=== PATIENT | male | born 1990 ===

== ENCOUNTER 2017-04-02 11:57 | Observation (INO) | payer MEDICAID ==
--- NOTE | 2017-04-02 12:56 | ED PDOC ---
HPI: General Adult Time Seen by Provider: 04/02/17 12:40 Chief Complaint (Nursing): Weakness/Neurological Deficit Chief Complaint (Provider): Generalized weakness History Per: Patient History/Exam Limitations: no limitations Onset/Duration Of Symptoms: Other (6 weeks) Have you had recent travel within the past 21 days to any of the following countries: [place], [place], [place] or [place]?: No Current Symptoms Are (Timing): Still Present Additional Complaint(s): 26 year old male with past medical history of HIV (not on meds, dx'ed 2009) presents to ED with complaints of generalized weakness x 6 weeks. Patient states was evaluated by Dr. Dena Padilla last month and was told to come to ED today due to anemia. Patient states fatigue and generalized weakness is present. Denies palpitations, chest pain, dyspnea, headache, fever, chills, abdominal pain, recent travel, change in vision, or back pain. Denies nausea/ vomiting. Denies any active bleeding. PMD: Dr. Dena Padilla Past Medical History Reviewed: Historical Data, Nursing Documentation, Vital Signs Vital Signs: Last Vital Signs Temp 98.6 F 04/02/17 16:49 Pulse 119 H 04/02/17 16:49 Resp 18 04/02/17 16:49 BP 130/69 04/02/17 16:49 Pulse Ox 100 04/02/17 16:49 - Medical History PMH: HIV (not on meds) - Surgical History Surgical History: Appendectomy - Family History Family History: States: No Known Family Hx - Home Medications Home Medications: Ambulatory Orders Medication Instructions Recorded Doxycycline Hyclate [Doryx] 100 mg PO BID 04/02/17 metroNIDAZOLE [Flagyl] 500 mg PO TID 04/02/17 - Allergies Allergies/Adverse Reactions: Allergies Allergy/AdvReac Type Severity Reaction Status Date / Time No Known Allergies Allergy Verified 03/14/17 10:43 Review of Systems ROS Statement: Except As Marked, All Systems Reviewed And Found Negative Neurological: Positive for: Weakness. Negative for: Dizziness Physical Exam - Reviewed Nursing Documentation Reviewed: Yes Vital Signs Reviewed: Yes - Physical Exam Appears: Positive for: No Acute Distress Head Exam: Positive for: ATRAUMATIC, NORMAL INSPECTION, NORMOCEPHALIC Skin: Positive for: Normal Color, Warm, Dry Eye Exam: Positive for: Normal appearance, EOMI Neck: Positive for: Normal, Painless ROM, Supple Cardiovascular/Chest: Positive for: Regular Rate, Rhythm Respiratory: Positive for: Normal Breath Sounds Gastrointestinal/Abdominal: Positive for: Normal Exam, Bowel Sounds (+), Soft Back: Positive for: Normal Inspection. Negative for: L CVA Tenderness, R CVA Tenderness Extremity: Positive for: Normal ROM. Negative for: Tenderness, Pedal Edema Neurologic/Psych: Positive for: Alert, copy writer II-XII, Oriented - Laboratory Results Result Diagrams: 04/02/17 16:11 04/02/17 12:55 - ECG ECG: Positive for: Interpreted By Me, Viewed By Me ECG Rhythm: Positive for: Sinus Tachycardia O2 Sat by Pulse Oximetry: 98 Pulse Ox Interpretation: Normal - Progress ED Course And Treament: Time: 1240 Initial impression: 26 year old male with medical history of smoker, HIV (not on meds) with generalized weakness x 6 wks, referred by PMD due to anemia. Plan: * CBC * CMP * TYPE AND SCREEN * EKG * REEVAL Time: 1400 Patient improved minimally but continues with symptoms. EKG - sinus tachycardia. Labs reviewed, Hgb 8.1. K+: 3.4 Will replace with K-Dur 40mEq and give NS 500 ml x 1 and re-evaluate. Time: 1540 Continued symptoms, will obtain repeat CBC Time: 1640 Repeat CBC shows Hgb 7.1 and continued tachycardia. Will transfuse 2U pRBC at this time. Informed consent obtained. Spoke with [id number], Dr. May, accepted patient for obs-tele. Disposition - Clinical Impression Clinical Impression: Anemia, HIV (human immunodeficiency virus infection) - Patient ED Disposition Is Patient to be Admitted: Yes Counseled Patient/Family Regarding: Studies Performed, Diagnosis - Disposition Disposition Time: 17:00 Condition: FAIR - Pt Status Changed To: Hospital Disposition Of: Observation - POA Present On Arrival: None
[2017-04-02 13:40] LABS: ALB/GLOB RATIO 0.8 (1.0-2.1); ALKALINE PHOSPHATASE 155 U/L (38-126); ALT/SGPT 29 U/L (21-72); AST/SGOT 49 U/L (17-59); BASO % 0.3 % (0.0-2.0); BILIRUBIN,TOTAL 0.3 mg/dl (0.2-1.3); BLOOD UREA NITROGEN 12 mg/dl (9-20); CALCIUM 8.8 mg/dL (8.4-10.2); CARBON DIOXIDE 22 mmol/L (22-30); CHLORIDE 109 mmol/L (98-107); EOS % 0.4 % (0.0-4.0); GFR AFRICAN-AMERICAN > 60; GLUCOSE,RANDOM 85 mg/dL (75-110); HEMATOCRIT 23.7 % (35.0-51.0); LYMPH # 0.3 K/uL (1.0-4.3); LYMPH % 3.4 % (20.0-40.0); MEAN CELL VOLUME 93.2 fl (80.0-94.0); MEAN CORPUSCULAR HEMOGLOBIN 31.9 pg (27.0-31.0); MEAN CORPUSCULAR HGB CONC 34.3 g/dL (33.0-37.0); MONO # 0.6 K/uL (0.0-0.8); MONO % 7.2 % (0.0-10.0); NEUT # 6.9 K/uL (1.8-7.0); NEUT % 88.7 % (50.0-75.0); NRBC % 0.1 % (0.0-0.0); PLATELET COUNT 249 K/uL (130-400); POTASSIUM 3.4 MMOL/L (3.6-5.0); RED CELL DISTRIBUTION WIDTH 14.8 % (11.5-14.5); SODIUM 140 mmol/l (132-148); TOTAL PROTEIN 7.1 G/DL (6.3-8.2); WHITE BLOOD COUNT 7.8 K/uL (4.8-10.8)
[2017-04-02 14:13] LABS: NEUTROPHIL 91 % (42-75); TOTAL CELLS COUNTED 100
[2017-04-02] MEDS ORDERED: Sodium Chloride 0.9% 500 ML IV ONE (14:13)
[2017-04-02] MEDS ORDERED: Potassium Chloride 20 mEq ER Tab PO ONE ×2 (14:14→14:44)
[2017-04-02 14:15] LABS: LARGE PLATELETS PRESENT
[2017-04-02 16:50] LABS: MEAN CELL VOLUME 92.6 fl (80.0-94.0); MEAN CORPUSCULAR HEMOGLOBIN 31.4 pg (27.0-31.0); MEAN CORPUSCULAR HGB CONC 33.9 g/dL (33.0-37.0); RED CELL DISTRIBUTION WIDTH 14.5 % (11.5-14.5); WHITE BLOOD COUNT 6.1 K/uL (4.8-10.8)
[2017-04-02] MEDS ORDERED: DiphenhydrAMINE 50 mg/ml Inj IVP ONE (21:20)
[2017-04-03] MEDS ORDERED: methylPREDNISolone 60 MG in Sodium Chloride 0.9% 50 ML IVPB STA (00:42)
[2017-04-03] MEDS ORDERED: DiphenhydrAMINE 50 mg/ml Inj IVP STA (00:50)
[2017-04-03 06:48] LABS: HEMATOCRIT 28.5 % (35.0-51.0); MEAN CELL VOLUME 91.6 fl (80.0-94.0); MEAN CORPUSCULAR HEMOGLOBIN 30.3 pg (27.0-31.0); MEAN CORPUSCULAR HGB CONC 33.1 g/dL (33.0-37.0); RED CELL DISTRIBUTION WIDTH 15.8 % (11.5-14.5); WHITE BLOOD COUNT 9.4 K/uL (4.8-10.8)
[2017-04-03 07:06] LABS: ALB/GLOB RATIO 0.8 (1.0-2.1); ALKALINE PHOSPHATASE 134 U/L (38-126); ALT/SGPT 30 U/L (21-72); AST/SGOT 52 U/L (17-59); BILIRUBIN,TOTAL 0.3 mg/dl (0.2-1.3); BLOOD UREA NITROGEN 12 mg/dl (9-20); CALCIUM 9.1 mg/dL (8.4-10.2); CARBON DIOXIDE 22 mmol/L (22-30); CHLORIDE 109 mmol/L (98-107); CHOLESTEROL 111 mg/dL (0-199); GFR AFRICAN-AMERICAN > 60; GLUCOSE,RANDOM 104 mg/dL (75-110); POTASSIUM 4.6 MMOL/L (3.6-5.0); SODIUM 142 mmol/l (132-148)
[2017-04-03 07:13] LABS: T4 6.46 ug/dl (5.5-11.0)
--- NOTE | 2017-04-03 10:56 | CARD ---
APPROVED REPORT EKG Measurement Heart [id number] <Conclusion> Sinus tachycardia Rightward axis Borderline ECG
--- NOTE | 2017-04-03 12:22 | CP.PCM.CON ---
History of Present Illness - History of Present Illness History of Present Illness: 6 year old male with past medical history of HIV (not on meds, dx'ed 2009) presents to ED with complaints of generalized weakness x 6 weeks. Patient states was evaluated by Dr. Dena Padilla last month and was told to come to ED today due to anemia. Patient states fatigue and generalized weakness is present. Denies palpitations, chest pain, dyspnea, headache, fever, chills, abdominal pain, recent travel, change in vision, or back pain. Denies nausea/ vomiting. Denies any active bleeding. + chronic diarrhea HIV + for at least 7 years on no meds PMD: Dr. Dena Padilla - Medical History PMH: HIV (not on meds) - Surgical History Surgical History: Appendectomy Review of Systems - Constitutional Constitutional: As Per HPI, Anorexia, Malaise, Weight Loss - EENT Eyes: absent: As Per HPI, Blind Spots, Blurred Vision, Change in Vision, Decreased Night Vision, Diplopia, Discharge, Dry Eye, Exophthalmos, Floaters, Irritation, Itchy Eyes, Loss of Peripheral Vision, Pain, Photophobia, Requires Corrective Lenses, Sees Flashes, Spots in Vision, Tunnel Vision, Other Visual Disturbances, Loss of Vision, Other Ears: absent: As Per HPI, Decreased Hearing, Ear Discharge, Ear Pain, Tinnitus, Abnormal Hearing, Disequilibrium, Dizziness, Other Nose/Mouth/Throat: absent: As Per HPI, Epistaxis, Nasal Congestion, Nasal Discharge, Nasal Obstruction, Nasal Trauma, Nose Pain, Post Nasal Drip, Sinus Pain, Sinus Pressure, Bleeding Gums, Change in Voice, Dental Pain, Dry Mouth, Dysphagia, Halitosis, Hoarsness, Lip Swelling, Mouth Lesions, Mouth Pain, Odynophagia, Sore Throat, Throat Swelling, Tongue Swelling, Facial Pain, Neck Pain, Neck Mass, Other - Cardiovascular Cardiovascular: absent: As Per HPI, Acrocyanosis, Chest Pain, Chest Pain at Rest , Chest Pain with Activity, Claudication, Diaphoresis, Dyspnea, Dyspnea on Exertion, Edema, Irregular Heart Rhythm, Pain Radiating to Arm/Neck/Jaw, Leg Edema, Leg Ulcers, Lightheadedness, Orthopnea, Palpitations, Paroxysmal Nocturnal Dyspnea, Pedal Edema, Radiating Pain, Rapid Heart Rate, Slow Heart Rate, Syncope, Other - Respiratory Respiratory: absent: As Per HPI, Cough, Dyspnea, Hemoptysis, Dyspnea on Exertion , Wheezing, Snoring, Stridor, Pain on Inspiration, Chest Congestion, Excessive Mucous Production, Change in Mucous Color, Pain with Coughing, Other - Gastrointestinal Gastrointestinal: As Per HPI - Genitourinary Genitourinary: absent: As Per HPI, Change in Urinary Stream, Difficulty Urinating, Dysuria, Flank Pain, Hematuria, Pyuria, Nocturia, Urinary Incontinence, Urinary Frequency, Urinary Hesitance, Urinary Urgency, Voiding Freq/Small Amts, Freq UTI, Hx Renal/Bladder Calculi, Hx /Renal Surgery, Bladder Distension, Other - Musculoskeletal Musculoskeletal: absent: As Per HPI, Abnormal Gait, Arthralgias, Atrophy, Back Pain, Deformity, Joint Swelling, Limited Range of Motion, Loss of Height, Muscle Cramps, Muscle Weakness, Myalgias, Neck Pain, Numbness, Radiating Pain into Limb, Stiffness, Tingling, Other - Integumentary Integumentary: absent: As Per HPI, Acne, Alopecia, Bleeding Lesions, Change in Hair, Change in Nails, Change in Pigmentation, Changing Lesions, Dry Skin, Erythema, Furuncle, Hirsutism, Lesions, New Lesions, Non-Healing Lesions, Photosensitivity, Pruritus, Rash, Skin Pain, Skin Ulcer, Sores, Striae, Swelling , Unusual Bruising, Wounds, Jaundice, Other - Neurological Neurological: Weakness - Psychiatric Psychiatric: absent: As Per HPI, Abnormal Sleep Pattern, Anhedonia, Anxiety, Auditory Hallucinations, Behavioral Changes, Change in Appetite, Change in Libido, Confusion, Depression, Difficulty Concentrating, Hallucinations, Homicidal Ideation, Hopelessness, Irritability, Memory Loss, Mood Swings, Panic Attacks, Paranoia, Suicidal Ideation, Visual Hallucinations, Tactile Hallucinations, Other - Endocrine Endocrine: absent: As Per HPI, Change in Body Appearance, Change in Libido, Cold Intolorance, Deepening of Voice, Excessive Sweating, Fatigue, Flushing, Heat Intolorance, Increase in Ring/Shoe/Hat Size, Palpitations, Polydipsia, Polyphagia, Polyuria, Other - Hematologic/Lymphatic Hematologic: absent: As Per HPI, Easy Bleeding, Easy Bruising, Lymphadenopathy, Other Past Patient History - Past Medical History & Family History Past Medical History?: Yes - Past Social History Smoking Status: Light Smoker < 10 Cigarettes Daily - CARDIAC Hx Cardiac Disorders: No - PULMONARY Hx Respiratory Disorders: No - NEUROLOGICAL Hx Neurological Disorder: No - HEENT Hx HEENT Problems: No - RENAL Hx Chronic Kidney Disease: No - ENDOCRINE/METABOLIC Hx Endocrine Disorders: No - HEMATOLOGICAL/ONCOLOGICAL Hx Blood Disorders: Yes Hx Human Immunodeficiency Virus (HIV): Yes (not on meds) - INTEGUMENTARY Hx Dermatological Problems: No - MUSCULOSKELETAL/RHEUMATOLOGICAL Hx Musculoskeletal Disorders: No Hx Falls: No - GASTROINTESTINAL Hx Gastrointestinal Disorders: No - GENITOURINARY/GYNECOLOGICAL Hx Genitourinary Disorders: No - PSYCHIATRIC Hx Psychophysiologic Disorder: Yes Hx Substance Use: Yes (marijuana) - SURGICAL HISTORY Hx Surgeries: Yes Hx Appendectomy: Yes - ANESTHESIA Hx Anesthesia: Yes Hx Anesthesia Reactions: No Hx Malignant Hyperthermia: No Meds Allergies/Adverse Reactions: Allergies Allergy/AdvReac Type Severity Reaction Status Date / Time No Known Allergies Allergy Verified 03/14/17 10:43 - Medications Medications: Current Medications Acetaminophen (Tylenol 325mg Tab) 650 mg PO Q4 PRN PRN Reason: Temperature Last Admin: 04/02/17 23:11 Dose: 650 mg Physical Exam - Constitutional Appears: Non-toxic, Cachectic, Chronically Ill - Head Exam Head Exam: ATRAUMATIC, NORMAL INSPECTION, NORMOCEPHALIC - Eye Exam Eye Exam: EOMI, PERRL. absent: Scleral icterus - ENT Exam ENT Exam: Mucous Membranes Dry, Normal External Ear Exam - Neck Exam Neck exam: Negative for: Lymphadenopathy, Thyromegaly - Respiratory Exam Respiratory Exam: Decreased Breath Sounds, Clear to Auscultation Bilateral - Cardiovascular Exam Cardiovascular Exam: REGULAR RHYTHM, +S1, +S2 - GI/Abdominal Exam GI & Abdominal Exam: Diminished Bowel Sounds, Distended, Guarding, Soft. absent : Rebound, Rigid, Tenderness - Rectal Exam Rectal Exam: Deferred - Exam Exam: NORMAL INSPECTION - Extremities Exam Extremities exam: Positive for: pedal pulses present. Negative for: calf tenderness, pedal edema, tenderness - Back Exam Back exam: absent: CVA tenderness (L), CVA tenderness (R) - Neurological Exam Neurological exam: Alert, CN II-XII Intact, Oriented x3, Reflexes Normal - Psychiatric Exam Psychiatric exam: Depressed, Flat Affect - Skin Skin Exam: Dry Results - Vital Signs Recent Vital Signs: Last Vital Signs Temp 98.6 F 04/03/17 04:45 Pulse 95 H 04/03/17 04:45 Resp 20 04/03/17 04:45 BP 108/62 04/03/17 04:45 Pulse Ox 98 04/03/17 04:45 - Labs Result Diagrams: 04/03/17 05:50 04/03/17 05:50 Labs: Laboratory Results - last 24 hr 04/02/17 04/03/17 04/03/17 19:20 05:50 05:50 WBC 9.4 D RBC 3.11 L Hgb 9.4 L D Hct 28.5 L MCV 91.6 MCH 30.3 MCHC 33.1 RDW 15.8 H Plt Count 247 Sodium 142 Potassium 4.6 Chloride 109 H Carbon Dioxide 22 Anion Gap 16 BUN 12 Creatinine 0.8 Est GFR ( Amer) > 60 Est GFR (Non-Af Amer) > 60 Random Glucose 104 Calcium 9.1 Total Bilirubin 0.3 AST 52 ALT 30 Alkaline Phosphatase 134 H Total Protein 7.0 Albumin 3.1 L Globulin 3.9 Albumin/Globulin Ratio 0.8 L Triglycerides 104 Cholesterol 111 LDL Cholesterol Direct 53 HDL Cholesterol 26 L Thyroxine (T4) 6.46 TSH 3rd Generation 12.60 H Stool Occult Blood Positive H Assessment & Plan (1) Anemia Status: Acute (2) HIV (human immunodeficiency virus infection) Status: Acute (3) Colitis Status: Acute - Assessment and Plan (Free Text) Assessment: end stage aids with severe anemia r/o MAC infection, cryptosporidium infection recc: GI eval IV antibiotics PCP prophylaxis check t cells and viral load initiate HAART rx if pt agrees consider eval for [employer] [place] in [place]
[2017-04-03 12:27] VITALS: BP 116/65; PULSE 106; RESP 18; TEMP 98.4; O2SAT 97
--- NOTE | 2017-04-03 14:34 | CP.PCM.HP ---
History of Present Illness - History of Present Illness History of Present Illness: CC: Generalized weakness. 26y/o M sent to [facility] for Anemia evaluation and management after was found on DOA to have severe Anemia by his PMD, Dr.Leslie Padilla. In ER Hgb 7.1 Worsening symptoms: Pt with Hx of HIV 2nd to drug abuse, Fatigue , chronic diarrhea, also Hx of Partner with HIV+, Syphilis+ Aggravated Factor: Pt with HIV not on medications. Pt denied: Fever, chills, abdominal pain, n/v, CP, SOB, Cough, dizziness, syncope, vision change, numbness, bleeding, recent travel. PMHx: HIV since 2009, Colitis. EKG: Sinus Tachycardia. Present on Admission - Present on Admission Any Indicators Present on Admission: No Review of Systems - Constitutional Constitutional: Fever, Weakness - EENT Eyes: Other (negative) Ears: Other (negative) Nose/Mouth/Throat: Other (negative) - Cardiovascular Cardiovascular: Rapid Heart Rate - Respiratory Respiratory: Other (negative) - Gastrointestinal Gastrointestinal: Diarrhea - Genitourinary Genitourinary: Other (negative) - Musculoskeletal Musculoskeletal: Other (negative) - Integumentary Integumentary: Other (negative) - Neurological Neurological: Other (negative) - Psychiatric Psychiatric: Other (negative) - Endocrine Endocrine: Other (negative) - Hematologic/Lymphatic Hematologic: Other (anemia) Past Patient History - Past Medical History & Family History Past Medical History?: Yes Pertinent Family History: Unknown - Past Social History Smoking Status: Light Smoker < 10 Cigarettes Daily Alcohol: None Drugs: Cannabis Home Situation {Lives}: Friends - CARDIAC Hx Cardiac Disorders: No - PULMONARY Hx Respiratory Disorders: No - NEUROLOGICAL Hx Neurological Disorder: No - HEENT Hx HEENT Problems: No - RENAL Hx Chronic Kidney Disease: No - ENDOCRINE/METABOLIC Hx Endocrine Disorders: No - HEMATOLOGICAL/ONCOLOGICAL Hx Blood Disorders: Yes Hx Human Immunodeficiency Virus (HIV): Yes (not on meds) - INTEGUMENTARY Hx Dermatological Problems: No - MUSCULOSKELETAL/RHEUMATOLOGICAL Hx Musculoskeletal Disorders: No Hx Falls: No - GASTROINTESTINAL Hx Gastrointestinal Disorders: Yes Hx Diarrhea: Yes - GENITOURINARY/GYNECOLOGICAL Hx Genitourinary Disorders: No - PSYCHIATRIC Hx Psychophysiologic Disorder: Yes Hx Substance Use: Yes (marijuana) - SURGICAL HISTORY Hx Surgeries: Yes Hx Appendectomy: Yes - ANESTHESIA Hx Anesthesia: Yes Hx Anesthesia Reactions: No Hx Malignant Hyperthermia: No Meds Allergies/Adverse Reactions: Allergies Allergy/AdvReac Type Severity Reaction Status Date / Time No Known Allergies Allergy Verified 03/14/17 10:43 Physical Exam - Constitutional Appears: No Acute Distress - Head Exam Head Exam: NORMAL INSPECTION - Eye Exam Eye Exam: PERRL - ENT Exam ENT Exam: Normal Oropharynx - Neck Exam Neck exam: Positive for: Normal Inspection - Respiratory Exam Respiratory Exam: NORMAL BREATHING PATTERN - Cardiovascular Exam Cardiovascular Exam: Tachycardia - GI/Abdominal Exam GI & Abdominal Exam: Normal Bowel Sounds, Soft - Extremities Exam Extremities exam: Positive for: normal inspection - Back Exam Back exam: NORMAL INSPECTION - Neurological Exam Neurological exam: Alert, Oriented x3 - Skin Skin Exam: Warm Results - Vital Signs Recent Vital Signs: Last Vital Signs Temp 98.4 F 04/03/17 12:27 Pulse 106 H 04/03/17 12:27 Resp 18 04/03/17 12:27 BP 116/65 04/03/17 12:27 Pulse Ox 97 04/03/17 12:27 reviewed J.P. - Labs Result Diagrams: 04/03/17 05:50 04/03/17 05:50 Labs: Laboratory Results - last 24 hr 04/02/17 04/03/17 04/03/17 19:20 05:50 05:50 WBC 9.4 D RBC 3.11 L Hgb 9.4 L D Hct 28.5 L MCV 91.6 MCH 30.3 MCHC 33.1 RDW 15.8 H Plt Count 247 Sodium 142 Potassium 4.6 Chloride 109 H Carbon Dioxide 22 Anion Gap 16 BUN 12 Creatinine 0.8 Est GFR ( Amer) > 60 Est GFR (Non-Af Amer) > 60 Random Glucose 104 Calcium 9.1 Total Bilirubin 0.3 AST 52 ALT 30 Alkaline Phosphatase 134 H Total Protein 7.0 Albumin 3.1 L Globulin 3.9 Albumin/Globulin Ratio 0.8 L Triglycerides 104 Cholesterol 111 LDL Cholesterol Direct 53 HDL Cholesterol 26 L Thyroxine (T4) 6.46 TSH 3rd Generation 12.60 H Stool Occult Blood Positive H reviewed J.P. - EKG Data EKG comments: reviewed J.P. Assessment & Plan (1) Anemia Status: Acute Priority: High (2) HIV (human immunodeficiency virus infection) Status: Acute Priority: High (3) Colitis Status: Acute Priority: High - Assessment and Plan (Free Text) Plan: Pt had 3 U pRBC today in AM, with no adverse effect, Pt feeling better, f/u Blood C-S, f/u Hematology consult, ID consult appreciated. Pt mentioned earlier to leave hospital AMA. - Date & Time Date: 04/03/17 Time: 12:00
[2017-04-03] MEDS ORDERED: metroNIDAZOLE 500mg/100ml NS 100 ML IVPB SCH (17:00)
[2017-04-03] MEDS ORDERED: Tmp-Smz 800 mg-160 mg DS Tab PO SCH (21:00)
== END 2017-04-03 14:00 | disposition left against medical advice (07) ==
LOC: H.ER 11:57 → H.ERHOLD 16:50 → H.TEL 20:32
PROVIDERS: ADMIT Internal Medicine Pulmonary Disease; ATTEND Internal Medicine Pulmonary Disease
DX: B20 Human immunodeficiency virus [HIV] disease (principal); D63.8 Anemia in other chronic diseases classified elsewhere; K52.9 Noninfective gastroenteritis and colitis, unspecified; F17.210 Nicotine dependence, cigarettes, uncomplicated